=== PATIENT | male | born 1960 | race Caucasian/White ===

== ENCOUNTER 2018-11-30 17:24 | Outpatient (REF) | payer BC, SELFPAY ==
[2018-11-30 21:58] LABS: Abs Immature Grans 0.01 k/cumm (0.0-0.09); Absolute Basophil Count 0.01 k/cumm (0.0-0.2); Absolute Eosinophil Count 0.12 k/cumm (0.0-0.7); Absolute Lymphocyte Count 1.59 k/cumm (1.2-3.4); Absolute Monocyte Count 0.72 k/cumm (0.11-0.7); Absolute Neutrophil Count 4.92 k/cumm (1.2-6.7); Basophils % 0.1; Eosinophils % 1.6; HCT 45.2 % (40.0-50.0); HGB 15.2 g/dL (13.5-17.5); Immature Grans % 0.1; Lymphocytes % 21.6; Mean Corp. HGB Concentration 33.6 g/dL (32.0-36.0); Mean Corpuscular Volume 89.3 fL (80-95); Mean Platelet Volume 9.5 fL (8.0-11.0); Monocytes % 9.8; Neutrophils % 66.8; Platelet Count 246 x1000/uL (130-400); RBC 5.06 m/cumm (4.50-6.00); RBC Distribution Width 13.3 % (11.8-14.1); White Blood Cell Count 7.37 k/cumm (4.4-10.8)
[2018-11-30 22:43] LABS: ESR 12 MM/HR (1-20)
[2018-12-01 00:02] LABS: ALT 50 U/L (12-78); AST 24 U/L (15-37); Alkaline Phosphatase 72 U/L (46-116); Amylase 54 U/L (25-115); Anion Gap 9.6 mmol/L (3-11); BUN 12 mg/dL (7-18); Bilirubin, Total 0.6 mg/dL (0.2-1.0); CO2 28.4 mmol/L (21.0-32.0); Calcium 9.1 mg/dL (8.5-10.1); Chloride 104 mmol/L (98-107); Creatine Kinase 121 U/L (39-308); Glucose 70 mg/dL (70-100); Lipase 154 U/L (73-393); Potassium 4.4 mmol/L (3.5-5.1); Sodium 142 mmol/L (136-145); Total Protein 7.4 g/dL (6.4-8.2)
== END 2018-11-30 17:44 ==
LOC: NCHCN 17:24
PROVIDERS: Visit Provider Family Medicine
DX: R10.9 Unspecified abdominal pain (principal)
CPT/HCPCS: 80053; 82550; 83690; 85652; 82150; 85025

== ENCOUNTER 2019-04-09 15:04 | Outpatient (REF) | payer BC, SELFPAY ==
[2019-04-09 20:49] LABS: Calculated LDL 94; Cholesterol 165 mg/dL (50-200); HDL Cholesterol 51 mg/dL (40-60); Triglyceride 103 mg/dL (30-150)
== END 2019-04-09 15:24 ==
LOC: NCHCN 15:04
PROVIDERS: Visit Provider Internal Medicine
DX: Z13.220 Encounter for screening for lipoid disorders (principal)
CPT/HCPCS: 80061; 83721

== ENCOUNTER 2020-05-20 08:27 | Outpatient (REF) | payer BC, SELFPAY ==
[2020-05-20 21:17] LABS: Anion Gap 7.5 mmol/L (3-11); BUN 8 mg/dL (7-18); CO2 25.5 mmol/L (21.0-32.0); CREATININE 1.04 mg/dL (0.70-1.30); Calcium 8.7 mg/dL (8.5-10.1); Calculated LDL 84 mg/dL (<100); Chloride 105 mmol/L (98-107); Cholesterol 146 mg/dL (<200); Glucose 100 mg/dL (74-106); HDL Cholesterol 45 mg/dL (40-60); Potassium 4.1 mmol/L (3.5-5.1); Sodium 138 mmol/L (136-145); Triglyceride 85 mg/dL (<150)
== END 2020-05-20 08:47 ==
LOC: NCHCN 08:27
PROVIDERS: Visit Provider Internal Medicine
DX: I25.10 Atherosclerotic heart disease of native coronary artery without angina pectoris (principal); Z13.6 Encounter for screening for cardiovascular disorders
CPT/HCPCS: 80048; 80061

== ENCOUNTER 2022-02-10 20:36 | Outpatient (REF) | payer BC, SELFPAY ==
[2022-02-10 21:20] LABS: Abs Immature Grans 0.02 10^3/uL (0.0-0.06); Absolute Basophil Count 0.04 10^3/uL (0.0-0.2); Absolute Eosinophil Count 0.23 10^3/uL (0.0-0.7); Absolute Lymphocyte Count 2.29 10^3/uL (1.2-3.4); Absolute Monocyte Count 0.96 10^3/uL (0.1-0.8); Basophils % 0.5; Eosinophils % 3.1; HCT 45.2 % (40.0-50.0); HGB 14.8 g/dL (13.5-17.5); Immature Grans % 0.3; Lymphocytes % 31.2; MCHC 32.7 % (32.0-36.0); MCV 91.7 fL (80-95); MPV 9.2 fL (8.0-11.0); Monocytes % 13.1; Neutrophils % 51.8; Nucleated RBC 0 %; Platelet Count 249 10^3/uL (130-400); RBC 4.93 10^6/uL (4.36-5.78); RDW 12.4 % (11.8-14.1); RDW-SD 41.9 fL; WBC 7.34 10^3/uL (4.4-10.8)
[2022-02-10 21:23] LABS: Anion Gap 7.7 mmol/L (3-11); BUN 16 mg/dL (7-18); CO2 29.3 mmol/L (21.0-32.0); CREATININE 0.9 mg/dL (0.70-1.30); Calcium 8.9 mg/dL (8.5-10.1); Chloride 102 mmol/L (98-107); Glucose 80 mg/dL (74-106); Potassium 4.2 mmol/L (3.5-5.1); Sodium 139 mmol/L (136-145)
== END 2022-02-10 20:37 | disposition home or self-care (01) ==
LOC: LBN 20:36
PROVIDERS: Visit Provider Physician Assistant Medical
DX: Z13.228 Encounter for screening for other metabolic disorders (principal); Z13.0 Encounter for screening for diseases of the blood and blood-forming organs and certain disorders involving the immune mechanism
CPT/HCPCS: 80048; 85025

== ENCOUNTER 2023-02-25 10:39 | Outpatient (REF) | payer BC, SELFPAY ==
[2023-02-25 21:37] LABS: Abs Immature Grans 0.01 10^3/uL (0.0-0.06); Absolute Basophil Count 0.04 10^3/uL (0.0-0.2); Absolute Eosinophil Count 0.34 10^3/uL (0.0-0.7); Absolute Lymphocyte Count 1.18 10^3/uL (1.2-3.4); Absolute Monocyte Count 0.49 10^3/uL (0.1-0.8); Absolute Neutrophil Count 4.46 10^3/uL (1.2-6.7); Basophils % 0.6; Eosinophils % 5.2; HCT 41.1 % (40.0-50.0); HGB 13.7 g/dL (13.5-17.5); Immature Grans % 0.2; Lymphocytes % 18.1; MCH 30.4 pg (27.0-33.0); MCHC 33.3 % (32.0-36.0); MCV 91 fL (80-95); MPV 9.4 fL (8.0-11.0); Monocytes % 7.5; Neutrophils % 68.4; Platelet Count 206 10^3/uL (130-400); RBC 4.51 10^6/uL (4.36-5.78); RDW 12.8 % (11.8-14.1); RDW-SD 42.9 fL; WBC 6.52 10^3/uL (4.4-10.8)
[2023-02-25 21:52] LABS: Anion Gap 8.9 mmol/L (3-11); BUN 10 mg/dL (7-18); CO2 26.1 mmol/L (21.0-32.0); Calcium 8.6 mg/dL (8.5-10.1); Calculated LDL 55 mg/dL (<100); Chloride 107 mmol/L (98-107); Cholesterol 113 mg/dL (<200); Estimated GFR 84.05 (mL/min/1.73m2); Glucose 141 mg/dL (74-106); HDL Cholesterol 49 mg/dL (40-60); Potassium 4.3 mmol/L (3.5-5.1); Sodium 142 mmol/L (136-145); Triglyceride 49 mg/dL (<150)
[2023-02-28 09:43] LABS: PSA, Screening 0.5 ng/mL (<=4.5)
== END 2023-02-25 10:40 | disposition home or self-care (01) ==
LOC: NCHCN 10:39
PROVIDERS: Visit Provider Internal Medicine
DX: I25.10 Atherosclerotic heart disease of native coronary artery without angina pectoris (principal); Z12.5 Encounter for screening for malignant neoplasm of prostate; I10 Essential (primary) hypertension; E78.5 Hyperlipidemia, unspecified
CPT/HCPCS: 80048; 80061; 84153; 85025

== ENCOUNTER 2023-05-20 15:40 | Outpatient (REF) | payer BC, SELFPAY ==
[2023-05-20 15:43] LABS: Calculated LDL 211 mg/dL (<100); Cholesterol 282 mg/dL (<200); HDL Cholesterol 44 mg/dL (40-60); Triglyceride 139 mg/dL (<150)
== END 2023-05-20 15:41 | disposition home or self-care (01) ==
LOC: NCHCN 15:40
PROVIDERS: Visit Provider Internal Medicine
DX: E78.5 Hyperlipidemia, unspecified (principal)
CPT/HCPCS: 80061

== ENCOUNTER 2023-08-01 16:42 | Outpatient (REF) | payer BC, SELFPAY ==
[2023-08-01 17:56] LABS: Calculated LDL 63 mg/dL (<100); Cholesterol 125 mg/dL (<200); HDL Cholesterol 46 mg/dL (40-60); Triglyceride 82 mg/dL (<150)
== END 2023-08-01 16:43 | disposition home or self-care (01) ==
LOC: NCHCN 16:42
PROVIDERS: Visit Provider Internal Medicine
DX: E78.5 Hyperlipidemia, unspecified (principal)
CPT/HCPCS: 80061

== ENCOUNTER 2025-02-26 15:16 | Outpatient (REF) | payer MEDICARE, SELFPAY ==
[2025-02-26 21:32] LABS: HCT 44.4 % (40.0-50.0); HGB 14.9 g/dL (13.5-17.5); MCH 30.2 pg (27.0-33.0); MCHC 33.6 % (32.0-36.0); MCV 90 fL (80-95); MPV 9.6 fL (8.0-11.0); Platelet Count 164 10^3/uL (130-400); RBC 4.94 10^6/uL (4.36-5.78); RDW 12.5 % (11.8-14.1); RDW-SD 41.1 fL
[2025-02-26 21:38] LABS: ALT 41 U/L (16-63); AST 33 U/L (15-37); Albumin 4.1 g/dL (3.4-5.0); Alkaline Phosphatase 66 U/L (46-116); Anion Gap 10.5 mmol/L (3-11); BUN 17 mg/dL (7-18); Bilirubin, Total 0.8 mg/dL (0.2-1.0); CO2 25.5 mmol/L (21.0-32.0); Calculated LDL 69 mg/dL (<100); Chloride 105 mmol/L (98-107); Cholesterol 150 mg/dL (<200); Estimated GFR 83.01 (mL/min/1.73m2); Glucose 85 mg/dL (74-106); HDL Cholesterol 48 mg/dL (>or=40); Potassium 4.4 mmol/L (3.5-5.1); Sodium 141 mmol/L (136-145); Total Protein 7.6 g/dL (6.4-8.2); Triglyceride 169 mg/dL (<150)
[2025-02-27 19:33] LABS: PSA, Screening 0.6 ng/mL (<=4.5)
== END 2025-02-26 15:17 | disposition home or self-care (01) ==
LOC: NCHCN 15:16
PROVIDERS: Visit Provider Nurse Practitioner Family
DX: I10 Essential (primary) hypertension (principal); Z51.81 Encounter for therapeutic drug level monitoring; Z12.5 Encounter for screening for malignant neoplasm of prostate
CPT/HCPCS: 80053; 80061; 84153; 85027

== ENCOUNTER 2025-05-29 11:45 | Outpatient (REF) | payer MEDICARE, SELFPAY ==
[2025-05-29 15:15] LABS: TSH (W/Ref FT4) 0.96 uIU/mL (0.36-3.74)
== END 2025-05-29 11:46 | disposition home or self-care (01) ==
LOC: NCHCN 11:45
PROVIDERS: Visit Provider Internal Medicine
DX: H53.2 Diplopia (principal)
CPT/HCPCS: 84443

== ENCOUNTER 2025-09-06 09:50 | Outpatient (REF) | payer MEDICARE, SELFPAY | END 2025-09-06 09:51 | disposition home or self-care (01) | LOC: NCHCN 09:50 | PROVIDERS: Visit Provider Internal Medicine | DX: N52.9 Male erectile dysfunction, unspecified (principal) | CPT/HCPCS: 84403 ==